=== PATIENT | female | born 1940 | race Caucasian/White ===

== ENCOUNTER 2019-04-28 18:52 | Observation (INO) | payer MEDICARE ==
[2019-04-28] MEDS ORDERED: Zofran 4 MG/2 ML VIAL IV ONE (19:35)
[2019-04-28] MEDS ORDERED: Zofran 4 MG/2 ML VIAL ONE (19:40)
[2019-04-28] MEDS ORDERED: Sodium Chloride 0.9% 1000 ML 0 ML ONE (19:40)
[2019-04-28] MEDS: Sodium Chloride 0.9% 1000 ML 1,000 ML IV SCH ×2 (19:53→21:05)
--- NOTE | 2019-04-28 20:30 | ERPHSYRPT ---
- History of Present Illness Source: patient Exam Limitations: no limitations Patient Subjective Stated Complaint: STATES SINCE MONDAY HAS HAD N/V/D. TODAY IS HAVING SEVERE WEAKNESS AND PASSED OUT WHILE ANSWERING THE DOOR. Triage Nursing Assessment: TO ROOM PER EMS COT. SKIN W/D, COLOR PALE. RESP NONLABORED. PATIENT'S MOUTH DRY. ABD SOFT, NONTENDER. IV IN PLACE FROM EMS, 20GA LAF. SALINE INFUSING WIDE OPEN. Physician History: Diarrhea for past 4 days. No recent international travel history,nno suspicious foods consumed, no recent antibiotics, no recent hospitalizations. Timing/Duration: day(s) (4) Severity: moderate Modifying Factors: Improves With: nothing Associated Symptoms: nausea, vomiting, malaise, weakness, No abdominal pain, No shortness of breath, No heartburn, No diaphoresis, No cough, No chills, No chest pain, No fever, No headaches, No loss of appetite, No rash, No syncope, No seizure Allergies/Adverse Reactions: No Known Drug Allergies Allergy (Unverified 04/28/19 19:01) Home Medications: Lisinopril/Hydrochlorothiazide [Lisinopril-Hctz 20-12.5 mg Tab] 20 mg PO DAILY 04/28/19 [History] Simvastatin 10 mg PO DAILY 04/28/19 [History] Hx Tetanus, Diphtheria Vaccination/Date Given: No Hx Influenza Vaccination/Date Given: No Hx Pneumococcal Vaccination/Date Given: No Immunizations Up to Date: No - Review of Systems Constitutional: Fatigue, Malaise, No Fever, No Chills Eyes: No Discharge, No Eye Pain Ears, Nose, & Throat: No Symptoms, No Ear Pain, No Epistaxis, No Mouth Swelling , No Throat Swelling, No Painful Swallowing Respiratory: No Cough, No Dyspnea Cardiac: Syncope (brief while standing), No Chest Pain, No Edema Abdominal/Gastrointestinal: Nausea, Vomiting, Diarrhea (5 times a day), No Abdominal Pain, No Hematemesis, No Hematochezia, No Melena Genitourinary Symptoms: No Dysuria, No Hematuria, No Flank Pain Musculoskeletal: No Back Pain, No Neck Pain Skin: No Rash Neurological: Dizziness, No Focal Weakness, No Headache, No Parasthesia, No Sensory Changes, No Tremors, No Vertigo Psychological: No Symptoms Endocrine: No Polyuria, No Polydipsia, No Excessive Sweating Hematologic/Lymphatic: No Easy Bleeding, No Easy Bruising All Other Systems: Reviewed and Negative - Past Medical History Neurological History: No Pertinent History ENT History: Cataracts Cardiac History: Hypertension Respiratory History: No Pertinent History Endocrine Medical History: No Pertinent History Musculoskeletal History: Arthritis GI Medical History: Diverticulitis History: No Pertinent History Psycho-Social History: No Pertinent History Female Reproductive Disorders: Other - Past Surgical History Past Surgical History: Yes Female Surgical History: Hysterectomy - Social History Smoking Status: Never smoker Exposure to second hand smoke: Yes Drug Use: none Patient Lives Alone: Yes - Female History Hx Now: No - Nursing Vital Signs Nursing Vital Signs: Initial Vital Signs Temperature 100.1 F 04/28/19 18:53 Pulse Rate 87 04/28/19 18:53 Respiratory Rate 16 04/28/19 18:53 Blood Pressure 135/65 04/28/19 18:53 O2 Sat by Pulse Oximetry 99 04/28/19 18:53 Pain Scale Pain Intensity 0 - Physical Exam General Appearance: no apparent distress, alert Eye Exam: PERRL/EOMI, eyes nml inspection Ears, Nose, Throat Exam: normal ENT inspection, TMs normal, moist mucous membranes, dry mucous membranes, No pharyngeal erythema, No tonsillar exudate Neck Exam: normal inspection, non-tender, supple, full range of motion, No meningismus, No mass, No Brudzinski, No lymphadenopathy, No midline tenderness Respiratory Exam: normal breath sounds, lungs clear, airway intact, No respiratory distress, No diminished breath sounds, No accessory muscle use, No crackles/rales, No rhonchi, No wheezing, No stridor Cardiovascular Exam: normal heart sounds, normal peripheral pulses, No murmur, No friction rub Gastrointestinal/Abdomen Exam: soft, normal bowel sounds, No tenderness, No mass Back Exam: normal inspection, normal range of motion, No CVA tenderness, No vertebral tenderness Extremity Exam: normal inspection, normal range of motion, pelvis stable Neurologic Exam: alert, oriented x 3, cooperative, normal mood/affect, nml cerebellar function, nml station & gait, sensation nml, No motor deficits Skin Exam: normal color, warm, dry, No rash Lymphatic Exam: No adenopathy SpO2 Interpretation: normal SpO2: 98 O2 Delivery: Room Air - Course Nursing assessment & vital signs reviewed: Yes EKG Interpreted by Me: RATE (84), A-fib, NORMAL AXIS, NORMAL INTERVALS, NORMAL QRS, NORMAL ST-T, Other (negative previous EKG for comparison; Repeat EKG shows rate at 78 with most likely sinus arrhythmia; no acute ST or T wave changes) Ordered Tests: Active Orders 24 hr Category Date Time Status Training Development Manager STAT Care 04/28/19 19:36 Active EKG-ER Only STAT Care 04/28/19 19:35 Active EKG-ER Only STAT Care 04/28/19 21:27 Active IV Insertion STAT Care 04/28/19 19:35 Active CBC W DIFF Stat Lab 04/28/19 20:44 Completed CMP Stat Lab 04/28/19 20:44 Completed Lactic Acid Stat Lab 04/28/19 19:35 Completed MAGNESIUM Stat Lab 04/28/19 20:44 Completed PROTIME WITH INR Stat Lab 04/28/19 20:44 Completed PTT Stat Lab 04/28/19 20:44 Completed Urinalysis with Microscopy Stat Lab 04/28/19 Uncollected VENOUS BLOOD GAS Stat Lab 04/28/19 19:35 Completed Medication Summary Generic Name Dose Route Start Last Admin Trade Name Freq PRN Reason Stop Dose Admin Sodium Chloride 1,000 mls @ 999 mls/hr 04/28/19 19:45 04/28/19 21:05 Sodium Chloride 0.9% 1000 Ml IV 04/28/19 21:45 999 mls/hr .Q1H1M SUDHIR Administration Discontinued Medications Generic Name Dose Route Start Last Admin Trade Name Freq PRN Reason Stop Dose Admin Ondansetron HCl 4 mg 04/28/19 19:35 04/28/19 19:51 Zofran 4 Mg/2 Ml Vial IV 04/28/19 19:36 4 mg STAT ONE Administration Ondansetron HCl Confirm 04/28/19 19:40 Zofran 4 Mg/2 Ml Vial Administered 04/28/19 19:41 Dose 4 mg .ROUTE .STK-MED ONE Lab/Rad Data: Laboratory Result Diagrams 04/28/19 20:44 04/28/19 20:44 Laboratory Results 04/28/19 04/28/19 04/28/19 Range/Units 20:44 20:44 20:44 WBC 8.9 (4.0-10.5) K/mm3 RBC 4.16 (4.1-5.4) M/mm3 Hgb 12.3 (12.0-16.0) gm/dl Hct 37.7 (35-47) % MCV 90.6 (78-100) fl MCH 29.6 (26-32) pg MCHC 32.6 (32-36) g/dl RDW 13.7 (11.5-14.0) % Plt Count 218 (150-450) K/mm3 MPV 11.2 H (6-9.5) fl Gran % 86.6 H (36.0-66.0) % Eos # (Auto) 0.01 (0-0.5) Absolute Lymphs (auto) 0.66 L (1.0-4.6) Absolute Monos (auto) 0.50 (0.0-1.3) Lymphocytes % 7.4 L (24.0-44.0) % Monocytes % 5.6 (0.0-12.0) % Eosinophils % 0.1 (0.00-5.0) % Basophils % 0.3 (0.0-0.4) % Absolute Granulocytes 7.66 H (1.4-6.9) Basophils # 0.03 (0-0.4) PT 14.3 H (9.95-12.35) SECONDS INR 1.26 (0.8-3.0) APTT 25.4 (25.3-37.0) SECONDS pO2/FiO2 Ratio % VBG pH (7.32-7.42) VBG pCO2 at Pat Temp (42-55) mm/Hg VBG pO2 at Pat Temp (25-40) mm/Hg VBG HCO3 (22-28) meq/L VBG O2 Sat (Raimundo) (95-100) VBG Base Excess (-2.0-2.0) VBG Hemoglobin VBG Carboxyhemoglobin (0.0-6.9) % T HGB POC Potassium (3.5-5.1) Sodium 135 L (137-145) mmol/L Potassium 2.9 L* (3.5-5.1) mmol/L Chloride 102 (98-107) mmol/L Carbon Dioxide 21 L (22-30) mmol/L Anion Gap 14.8 (5-15) MEQ/L BUN 31 H (7-17) mg/dL Creatinine 1.48 H (0.52-1.04) mg/dL Estimated GFR 36.1 ML/MIN Glucose 111 H (74-106) mg/dL Lactic Acid (0.4-2.0) Calcium 7.7 L (8.4-10.2) mg/dL Magnesium 1.6 (1.6-2.3) mg/dL Total Bilirubin 0.50 (0.2-1.3) mg/dL AST 28 (14-36) U/L ALT 12 (0-35) U/L Alkaline Phosphatase 76 (38-126) U/L Serum Total Protein 6.3 (6.3-8.2) g/dL Albumin 3.0 L (3.5-5.0) g/dL 04/28/19 04/28/19 Range/Units 19:35 19:35 WBC (4.0-10.5) K/mm3 RBC (4.1-5.4) M/mm3 Hgb (12.0-16.0) gm/dl Hct (35-47) % MCV (78-100) fl MCH (26-32) pg MCHC (32-36) g/dl RDW (11.5-14.0) % Plt Count (150-450) K/mm3 MPV (6-9.5) fl Gran % (36.0-66.0) % Eos # (Auto) (0-0.5) Absolute Lymphs (auto) (1.0-4.6) Absolute Monos (auto) (0.0-1.3) Lymphocytes % (24.0-44.0) % Monocytes % (0.0-12.0) % Eosinophils % (0.00-5.0) % Basophils % (0.0-0.4) % Absolute Granulocytes (1.4-6.9) Basophils # (0-0.4) PT (9.95-12.35) SECONDS INR (0.8-3.0) APTT (25.3-37.0) SECONDS pO2/FiO2 Ratio 21.0 % VBG pH 7.58 H* (7.32-7.42) VBG pCO2 at Pat Temp 23 L* (42-55) mm/Hg VBG pO2 at Pat Temp 88 H (25-40) mm/Hg VBG HCO3 21.6 L (22-28) meq/L VBG O2 Sat (Raimundo) 99.2 (95-100) VBG Base Excess 1.2 (-2.0-2.0) VBG Hemoglobin 12.5 VBG Carboxyhemoglobin 3.4 (0.0-6.9) % T HGB POC Potassium 2.8 L* (3.5-5.1) Sodium (137-145) mmol/L Potassium (3.5-5.1) mmol/L Chloride (98-107) mmol/L Carbon Dioxide (22-30) mmol/L Anion Gap (5-15) MEQ/L BUN (7-17) mg/dL Creatinine (0.52-1.04) mg/dL Estimated GFR ML/MIN Glucose (74-106) mg/dL Lactic Acid 1.1 (0.4-2.0) Calcium (8.4-10.2) mg/dL Magnesium (1.6-2.3) mg/dL Total Bilirubin (0.2-1.3) mg/dL AST (14-36) U/L ALT (0-35) U/L Alkaline Phosphatase (38-126) U/L Serum Total Protein (6.3-8.2) g/dL Albumin (3.5-5.0) g/dL - Progress Progress: unchanged Progress Note: 04/28/19 21:32 Discussed the patient's EKG, lab results and presentation with Dr Chu, Hospitalist. Dr Chu accepted the patient for admission, requested serial troponins, oral potassium replacement and starting potassium with normal saline at 120ml/hour and recheck labs in the am Discussed with .: eZyad Will see patient in: hospital (observation) Counseled pt/family regarding: lab results, diagnosis, need for follow-up - Departure Departure Disposition: Observation ([facility] Telemetry) Clinical Impression: Dehydration, Hypokalemia, BRITTANY (acute kidney injury), Metabolic alkalosis Hypertension Qualifiers: Hypertension type: essential hypertension Qualified Code(s): I10 - Essential ( primary) hypertension Condition: Fair Critical Care Time: No Referrals: HEMA CEJA MD [Primary Care Provider] -
[2019-04-28 20:46] LABS: BASOPHIL % 0.3 % (0.0-0.4); Basophil (Absolute #) 0.03 (0-0.4); Eosinophil % 0.1 % (0.00-5.0); Eosinophil (Absolute #) 0.01 (0-0.5); Granulocyte Absolute (ANC) 7.66 (1.4-6.9); Granulocytes % 86.6 % (36.0-66.0); Hematocrit 37.7 % (35-47); Hemoglobin 12.3 gm/dl (12.0-16.0); Lymphocyte (Absolute #) 0.66 (1.0-4.6); Lymphocytes % 7.4 % (24.0-44.0); Mean Cell Volume 90.6 fl (78-100); Mean Corpuscular Hemoglobin 29.6 pg (26-32); Mean Corpuscular Hgb Concent. 32.6 g/dl (32-36); Mean Platelet Volume 11.2 fl (6-9.5); Monocytes % 5.6 % (0.0-12.0); Platelet Count 218 K/mm3 (150-450); Red Blood Count 4.16 M/mm3 (4.1-5.4); Red Cell Distribution Width 13.7 % (11.5-14.0); White Blood Count 8.9 K/mm3 (4.0-10.5)
[2019-04-28 21:01] LABS: VBG BASE EXCESS 1.2 (-2.0-2.0); VBG CARBOXYHEMOGLOBIN 3.4 % T HGB (0.0-6.9); VBG HCO3- 21.6 meq/L (22-28); VBG HEMOGLOBIN 12.5; VBG O2 SATURATION 99.2 (95-100); VBG pH 7.58 (7.32-7.42)
[2019-04-28 21:02] LABS: VBG POTASSIUM 2.8 (3.5-5.1)
[2019-04-28 21:03] LABS: INR 1.26 (0.8-3.0); PROTIME 14.3 SECONDS (9.95-12.35)
[2019-04-28] MEDS ORDERED: Sodium Chloride 0.9% 1000 ML 1,000 ML ONE ×2 (21:04→22:09)
[2019-04-28 21:06] LABS: PTT 25.4 SECONDS (25.3-37.0)
[2019-04-28 21:08] LABS: ANION GAP 14.8 MEQ/L (5-15); BILIRUBIN,TOTAL 0.5 mg/dL (0.2-1.3); Calcium 7.7 mg/dL (8.4-10.2); Creatinine 1 1.48 mg/dL (0.52-1.04); MAGNESIUM 1.6 mg/dL (1.6-2.3); Total Protein 6.3 g/dL (6.3-8.2)
[2019-04-28 21:12] LABS: Potassium 2.9 mmol/L (3.5-5.1)
[2019-04-28] MEDS ORDERED: TYLENOL EXTRA STRENGTH 500 MG PO STA (21:39)
[2019-04-28] MEDS ORDERED: Klor Con 10 MEQ PO ONE ×2 (21:39→21:41)
[2019-04-28] MEDS ORDERED: TYLENOL EXTRA STRENGTH 500 MG ONE (21:41)
[2019-04-28] MEDS ORDERED: TYLENOL 325 MG PO PRN (22:00)
[2019-04-28 22:04] LABS: Appearance CLEAR (CLEAR); Bilirubin NEGATIVE (NEGATIVE); Blood LARGE Ery/ul (0-5); Glucose NEGATIVE (NEGATIVE); Ketones TRACE (NEGATIVE); Leukocyte Esterase NEGATIVE (NEGATIVE); Mucus SLIGHT /HPF (NEGATIVE); Nitrite NEGATIVE (NEGATIVE); Protein,Urine Dip 30 (Negative); RBC 26-50 /HPF (0-2); Specific Gravity 1.014 (1.005-1.025); Urobilinogen NEGATIVE mg/dL (0-1)
[2019-04-28] MEDS: Pepcid 20 MG PO SCH (22:25)
[2019-04-28] MEDS: Sodium Chloride 0.9% W/ 20 mEq KCl/LITER 1,000 ML IV SCH (22:25)
[2019-04-29 04:18] LABS: BASOPHIL % 0.5 % (0.0-0.4); Basophil (Absolute #) 0.03 (0-0.4); Eosinophil (Absolute #) 0 (0-0.5); Granulocyte Absolute (ANC) 5.07 (1.4-6.9); Granulocytes % 78.7 % (36.0-66.0); Hematocrit 34.7 % (35-47); Hemoglobin 11.1 gm/dl (12.0-16.0); Lymphocyte (Absolute #) 0.76 (1.0-4.6); Lymphocytes % 11.8 % (24.0-44.0); Mean Cell Volume 92.3 fl (78-100); Mean Corpuscular Hemoglobin 29.5 pg (26-32); Mean Platelet Volume 11.1 fl (6-9.5); Monocyte (Absolute #) 0.58 (0.0-1.3); Platelet Count 188 K/mm3 (150-450); Red Blood Count 3.76 M/mm3 (4.1-5.4); Red Cell Distribution Width 13.8 % (11.5-14.0); White Blood Count 6.4 K/mm3 (4.0-10.5)
[2019-04-29 04:23] LABS: ANION GAP 11.9 MEQ/L (5-15); Calcium 7.6 mg/dL (8.4-10.2); Creatinine 1 1.43 mg/dL (0.52-1.04); Potassium 3.8 mmol/L (3.5-5.1)
[2019-04-29] MEDS: Sodium Chloride 0.9% W/ 20 mEq KCl/LITER 1,000 ML IV SCH ×3 (06:42→23:18)
[2019-04-29] MEDS: Pepcid 20 MG PO SCH ×2 (08:27→21:15)
--- NOTE | 2019-04-29 08:31 | PCM.HP ---
History of Present Illness - Chief Complaint Chief Complaint: Dehydration, diarrhea, hypokalemia, metabolic alkalosis History of Present Illness: is a 78 year old female with a 3-4 day history of diarrhea, she reports she has had subjective fever and vomited x 1. Last night she became very weak and passed out while trying to answer the door. She has chronic right knee issues but today notes swelling and difficulty standing/walking due to right knee pain. She only has pain in the medial/anterior right knee when she attempts to ambulate on it. Has only had 1 loose stool since 10pm last night so diarrhea has slowed significantly. - Review of Systems Constitutional: Fever, Chills Respiratory: No Cough, No Short Of Breath Cardiac: Syncope, No Chest Pain, No Edema, No Palpitations, No Orthopnea, No PND Abdominal/Gastrointestinal: Diarrhea, No Abdominal Pain, No Nausea, No Vomiting Genitourinary Symptoms: No Dysuria Neurological: No Dizziness, No Focal Weakness, No Paralysis, No Parasthesia, No Seizure, No Sensory Changes, No Speech Changes Psychological: No Symptoms Medications & Allergies Home Medications: Home Medication List Lisinopril/Hydrochlorothiazide [Lisinopril-Hctz 20-12.5 mg Tab] 20 mg PO DAILY 04/28/19 [History Confirmed 04/28/19] Simvastatin 10 mg PO DAILY 04/28/19 [History Confirmed 04/28/19] Allergies/Adverse Reactions: Allergies Allergy/AdvReac Type Severity Reaction Status Date / Time No Known Drug Allergies Allergy Unverified 04/28/19 19:01 - Past Medical History Neurological History: No Pertinent History ENT History: Cataracts Cardiac History: Hypertension Respiratory History: No Pertinent History Endocrine Medical History: No Pertinent History Musculoskelatal History: Arthritis GI Medical History: Diverticulitis History: No Pertinent History Pyscho-Social History: No Pertinent History Reproductive Disorders: Other - Female History Are you now?: No - Past Surgical History Past Surgical History: Yes Female Surgical History: Hysterectomy Other Surgical History: prolapsed vagina - Social History Smoking Status: Never smoker Exposure to second hand smoke: No Alcohol: None Drug Use: none - Physical Exam Vital Signs: Vital Signs - 24 hr Temp Pulse Resp BP Pulse Ox 04/29/19 07:10 98.5 F 66 17 104/56 95 04/29/19 04:17 98.2 F 65 16 92/52 95 09/16/19 00:00 19 04/28/19 22:37 100.3 F 78 19 131/62 97 04/28/19 22:00 97 04/28/19 21:38 98 04/28/19 21:38 102.0 F 04/28/19 21:06 88 18 141/85 99 04/28/19 19:53 88 20 140/68 98 04/28/19 18:53 100.1 F 87 16 135/65 99 General Appearance: no apparent distress Neurologic Exam: alert, oriented x 3, cooperative Eye Exam: PERRL/EOMI, eyes nml inspection Ears, Nose, Throat Exam: normal ENT inspection Neck Exam: normal inspection, non-tender, supple Respiratory Exam: normal breath sounds, lungs clear, No respiratory distress Cardiovascular Exam: regular rate/rhythm, normal heart sounds, normal peripheral pulses Gastrointestinal/Abdomen Exam: soft, normal bowel sounds, No tenderness, No distention, No mass, No guarding, No rebound Extremity Exam: normal inspection, normal range of motion, pelvis stable, other (right knee crepitus with range of motion, mild effusion. no obvious ligament instability, no bony tenderness) Results - Labs Lab/Micro Results: Lab Results-Last 24 Hours 04/28/19 04/28/19 04/28/19 Range/Units 19:35 19:35 20:44 WBC 8.9 (4.0-10.5) K/mm3 RBC 4.16 (4.1-5.4) M/mm3 Hgb 12.3 (12.0-16.0) gm/dl Hct 37.7 (35-47) % MCV 90.6 (78-100) fl MCH 29.6 (26-32) pg MCHC 32.6 (32-36) g/dl RDW 13.7 (11.5-14.0) % Plt Count 218 (150-450) K/mm3 MPV 11.2 H (6-9.5) fl Gran % 86.6 H (36.0-66.0) % Eos # (Auto) 0.01 (0-0.5) Absolute Lymphs (auto) 0.66 L (1.0-4.6) Absolute Monos (auto) 0.50 (0.0-1.3) Lymphocytes % 7.4 L (24.0-44.0) % Monocytes % 5.6 (0.0-12.0) % Eosinophils % 0.1 (0.00-5.0) % Basophils % 0.3 (0.0-0.4) % Absolute Granulocytes 7.66 H (1.4-6.9) Basophils # 0.03 (0-0.4) PT (9.95-12.35) SECONDS INR (0.8-3.0) APTT (25.3-37.0) SECONDS pO2/FiO2 Ratio 21.0 % VBG pH 7.58 H* (7.32-7.42) VBG pCO2 at Pat Temp 23 L* (42-55) mm/Hg VBG pO2 at Pat Temp 88 H (25-40) mm/Hg VBG HCO3 21.6 L (22-28) meq/L VBG O2 Sat (Raimundo) 99.2 (95-100) VBG Base Excess 1.2 (-2.0-2.0) VBG Hemoglobin 12.5 VBG Carboxyhemoglobin 3.4 (0.0-6.9) % T HGB POC Potassium 2.8 L* (3.5-5.1) Sodium (137-145) mmol/L Potassium (3.5-5.1) mmol/L Chloride (98-107) mmol/L Carbon Dioxide (22-30) mmol/L Anion Gap (5-15) MEQ/L BUN (7-17) mg/dL Creatinine (0.52-1.04) mg/dL Estimated GFR ML/MIN Glucose (74-106) mg/dL Lactic Acid 1.1 (0.4-2.0) Calcium (8.4-10.2) mg/dL Magnesium (1.6-2.3) mg/dL Total Bilirubin (0.2-1.3) mg/dL AST (14-36) U/L ALT (0-35) U/L Alkaline Phosphatase (38-126) U/L Troponin I (0.000-0.034) ng/mL Serum Total Protein (6.3-8.2) g/dL Albumin (3.5-5.0) g/dL Urine Color (YELLOW) Urine Appearance (CLEAR) Urine pH (5-6) Ur Specific [place] (1.005-1.025) Urine Protein (Negative) Urine Ketones (NEGATIVE) Urine Blood (0-5) Cameron/ul Urine Nitrite (NEGATIVE) Urine Bilirubin (NEGATIVE) Urine Urobilinogen (0-1) mg/dL Ur Leukocyte Esterase (NEGATIVE) Urine WBC (Auto) (0-5) /HPF Urine RBC (Auto) (0-2) /HPF U Epithel Cells (Auto) (FEW) /HPF Urine Bacteria (Auto) (NEGATIVE) /HPF Urine Mucus (Auto) (NEGATIVE) /HPF Urine Glucose (NEGATIVE) mg/dL 04/28/19 04/28/19 04/28/19 Range/Units 20:44 20:44 21:59 WBC (4.0-10.5) K/mm3 RBC (4.1-5.4) M/mm3 Hgb (12.0-16.0) gm/dl Hct (35-47) % MCV (78-100) fl MCH (26-32) pg MCHC (32-36) g/dl RDW (11.5-14.0) % Plt Count (150-450) K/mm3 MPV (6-9.5) fl Gran % (36.0-66.0) % Eos # (Auto) (0-0.5) Absolute Lymphs (auto) (1.0-4.6) Absolute Monos (auto) (0.0-1.3) Lymphocytes % (24.0-44.0) % Monocytes % (0.0-12.0) % Eosinophils % (0.00-5.0) % Basophils % (0.0-0.4) % Absolute Granulocytes (1.4-6.9) Basophils # (0-0.4) PT 14.3 H (9.95-12.35) SECONDS INR 1.26 (0.8-3.0) APTT 25.4 (25.3-37.0) SECONDS pO2/FiO2 Ratio % VBG pH (7.32-7.42) VBG pCO2 at Pat Temp (42-55) mm/Hg VBG pO2 at Pat Temp (25-40) mm/Hg VBG HCO3 (22-28) meq/L VBG O2 Sat (Raimundo) (95-100) VBG Base Excess (-2.0-2.0) VBG Hemoglobin VBG Carboxyhemoglobin (0.0-6.9) % T HGB POC Potassium (3.5-5.1) Sodium 135 L (137-145) mmol/L Potassium 2.9 L* (3.5-5.1) mmol/L Chloride 102 (98-107) mmol/L Carbon Dioxide 21 L (22-30) mmol/L Anion Gap 14.8 (5-15) MEQ/L BUN 31 H (7-17) mg/dL Creatinine 1.48 H (0.52-1.04) mg/dL Estimated GFR 36.1 ML/MIN Glucose 111 H (74-106) mg/dL Lactic Acid (0.4-2.0) Calcium 7.7 L (8.4-10.2) mg/dL Magnesium 1.6 (1.6-2.3) mg/dL Total Bilirubin 0.50 (0.2-1.3) mg/dL AST 28 (14-36) U/L ALT 12 (0-35) U/L Alkaline Phosphatase 76 (38-126) U/L Troponin I 0.025 (0.000-0.034) ng/mL Serum Total Protein 6.3 (6.3-8.2) g/dL Albumin 3.0 L (3.5-5.0) g/dL Urine Color (YELLOW) Urine Appearance (CLEAR) Urine pH (5-6) Ur Specific [place] (1.005-1.025) Urine Protein (Negative) Urine Ketones (NEGATIVE) Urine Blood (0-5) Cameron/ul Urine Nitrite (NEGATIVE) Urine Bilirubin (NEGATIVE) Urine Urobilinogen (0-1) mg/dL Ur Leukocyte Esterase (NEGATIVE) Urine WBC (Auto) (0-5) /HPF Urine RBC (Auto) (0-2) /HPF U Epithel Cells (Auto) (FEW) /HPF Urine Bacteria (Auto) (NEGATIVE) /HPF Urine Mucus (Auto) (NEGATIVE) /HPF Urine Glucose (NEGATIVE) mg/dL 04/28/19 04/29/19 04/29/19 Range/Units 21:59 00:58 04:09 WBC (4.0-10.5) K/mm3 RBC (4.1-5.4) M/mm3 Hgb (12.0-16.0) gm/dl Hct (35-47) % MCV (78-100) fl MCH (26-32) pg MCHC (32-36) g/dl RDW (11.5-14.0) % Plt Count (150-450) K/mm3 MPV (6-9.5) fl Gran % (36.0-66.0) % Eos # (Auto) (0-0.5) Absolute Lymphs (auto) (1.0-4.6) Absolute Monos (auto) (0.0-1.3) Lymphocytes % (24.0-44.0) % Monocytes % (0.0-12.0) % Eosinophils % (0.00-5.0) % Basophils % (0.0-0.4) % Absolute Granulocytes (1.4-6.9) Basophils # (0-0.4) PT (9.95-12.35) SECONDS INR (0.8-3.0) APTT (25.3-37.0) SECONDS pO2/FiO2 Ratio % VBG pH (7.32-7.42) VBG pCO2 at Pat Temp (42-55) mm/Hg VBG pO2 at Pat Temp (25-40) mm/Hg VBG HCO3 (22-28) meq/L VBG O2 Sat (Raimundo) (95-100) VBG Base Excess (-2.0-2.0) VBG Hemoglobin VBG Carboxyhemoglobin (0.0-6.9) % T HGB POC Potassium (3.5-5.1) Sodium (137-145) mmol/L Potassium (3.5-5.1) mmol/L Chloride (98-107) mmol/L Carbon Dioxide (22-30) mmol/L Anion Gap (5-15) MEQ/L BUN (7-17) mg/dL Creatinine (0.52-1.04) mg/dL Estimated GFR ML/MIN Glucose (74-106) mg/dL Lactic Acid (0.4-2.0) Calcium (8.4-10.2) mg/dL Magnesium (1.6-2.3) mg/dL Total Bilirubin (0.2-1.3) mg/dL AST (14-36) U/L ALT (0-35) U/L Alkaline Phosphatase (38-126) U/L Troponin I 0.034 0.032 (0.000-0.034) ng/mL Serum Total Protein (6.3-8.2) g/dL Albumin (3.5-5.0) g/dL Urine Color YELLOW (YELLOW) Urine Appearance CLEAR (CLEAR) Urine pH 6.0 (5-6) Ur Specific [place] 1.014 (1.005-1.025) Urine Protein 30 (Negative) Urine Ketones TRACE (NEGATIVE) Urine Blood LARGE (0-5) Cameron/ul Urine Nitrite NEGATIVE (NEGATIVE) Urine Bilirubin NEGATIVE (NEGATIVE) Urine Urobilinogen NEGATIVE (0-1) mg/dL Ur Leukocyte Esterase NEGATIVE (NEGATIVE) Urine WBC (Auto) 3-5 (0-5) /HPF Urine RBC (Auto) 26-50 (0-2) /HPF U Epithel Cells (Auto) NONE (FEW) /HPF Urine Bacteria (Auto) NONE (NEGATIVE) /HPF Urine Mucus (Auto) SLIGHT (NEGATIVE) /HPF Urine Glucose NEGATIVE (NEGATIVE) mg/dL 04/29/19 04/29/19 Range/Units 04:09 04:09 WBC 6.4 (4.0-10.5) K/mm3 RBC 3.76 L (4.1-5.4) M/mm3 Hgb 11.1 L (12.0-16.0) gm/dl Hct 34.7 L (35-47) % MCV 92.3 (78-100) fl MCH 29.5 (26-32) pg MCHC 32.0 (32-36) g/dl RDW 13.8 (11.5-14.0) % Plt Count 188 (150-450) K/mm3 MPV 11.1 H (6-9.5) fl Gran % 78.7 H (36.0-66.0) % Eos # (Auto) 0 (0-0.5) Absolute Lymphs (auto) 0.76 L (1.0-4.6) Absolute Monos (auto) 0.58 (0.0-1.3) Lymphocytes % 11.8 L (24.0-44.0) % Monocytes % 9.0 (0.0-12.0) % Eosinophils % 0.0 (0.00-5.0) % Basophils % 0.5 (0.0-0.4) % Absolute Granulocytes 5.07 (1.4-6.9) Basophils # 0.03 (0-0.4) PT (9.95-12.35) SECONDS INR (0.8-3.0) APTT (25.3-37.0) SECONDS pO2/FiO2 Ratio % VBG pH (7.32-7.42) VBG pCO2 at Pat Temp (42-55) mm/Hg VBG pO2 at Pat Temp (25-40) mm/Hg VBG HCO3 (22-28) meq/L VBG O2 Sat (Raimundo) (95-100) VBG Base Excess (-2.0-2.0) VBG Hemoglobin VBG Carboxyhemoglobin (0.0-6.9) % T HGB POC Potassium (3.5-5.1) Sodium 138 (137-145) mmol/L Potassium 3.8 D (3.5-5.1) mmol/L Chloride 107 (98-107) mmol/L Carbon Dioxide 23 (22-30) mmol/L Anion Gap 11.9 (5-15) MEQ/L BUN 27 H (7-17) mg/dL Creatinine 1.43 H (0.52-1.04) mg/dL Estimated GFR 37.5 ML/MIN Glucose 99 (74-106) mg/dL Lactic Acid (0.4-2.0) Calcium 7.6 L (8.4-10.2) mg/dL Magnesium (1.6-2.3) mg/dL Total Bilirubin (0.2-1.3) mg/dL AST (14-36) U/L ALT (0-35) U/L Alkaline Phosphatase (38-126) U/L Troponin I (0.000-0.034) ng/mL Serum Total Protein (6.3-8.2) g/dL Albumin (3.5-5.0) g/dL Urine Color (YELLOW) Urine Appearance (CLEAR) Urine pH (5-6) Ur Specific [place] (1.005-1.025) Urine Protein (Negative) Urine Ketones (NEGATIVE) Urine Blood (0-5) Cameron/ul Urine Nitrite (NEGATIVE) Urine Bilirubin (NEGATIVE) Urine Urobilinogen (0-1) mg/dL Ur Leukocyte Esterase (NEGATIVE) Urine WBC (Auto) (0-5) /HPF Urine RBC (Auto) (0-2) /HPF U Epithel Cells (Auto) (FEW) /HPF Urine Bacteria (Auto) (NEGATIVE) /HPF Urine Mucus (Auto) (NEGATIVE) /HPF Urine Glucose (NEGATIVE) mg/dL - Radiology Impressions Radiology Exams & Impressions: Radiology Procedures Category Date Time Status KNEE (1 OR 2 VIEW) Routine Exams 04/29/19 Ordered Assessment/Plan (1) Syncope Current Visit: Yes Status: Acute Assessment & Plan: related to dehydration, [place] ruled out. Code(s): R55 - SYNCOPE AND COLLAPSE (2) Diarrhea Current Visit: Yes Status: Acute Assessment & Plan: GI panel pending, improved with hydration and observation Code(s): R19.7 - DIARRHEA, UNSPECIFIED (3) Right knee sprain Current Visit: Yes Status: Acute Assessment & Plan: xray to r/o fracture, clinically consistent with sprain Code(s): S83.91XA - SPRAIN OF UNSPECIFIED SITE OF RIGHT KNEE, INITIAL ENCOUNTER (4) BRITTANY (acute kidney injury) Current Visit: Yes Status: Acute Assessment & Plan: improved with hydration Code(s): N17.9 - ACUTE KIDNEY FAILURE, UNSPECIFIED (5) Dehydration Current Visit: Yes Status: Acute Assessment & Plan: volume being replaced. bp stable but on low side, hold zestoretic at this time Code(s): E86.0 - DEHYDRATION
[2019-04-29] MEDS: Zocor 10MG PO SCH (09:22)
--- NOTE | 2019-04-29 09:47 | XRAY ---
Indication: Pain. Comparison: None Portable AP/crosstable lateral right knee demonstrates osteopenia and mild/moderate tricompartmental degenerative changes greatest lateral compartment. Also small nonspecific effusion, posterior heterotopic ossifications, and small medial calcified granuloma. Distal femur minimal cortical depression anteriorly favored to be remote probably from old injury. Impression: Nonacute right knee with chronic features.
[2019-04-29] MEDS ORDERED: ENOXAPARIN SODIUM SQ SCH ×2 (10:00)
[2019-04-29 10:29] LABS: Adenovirus F 40/41 NEGATIVE (NEGATIVE); Astrovirus NEGATIVE (NEGATIVE); C. Difficile Organism NEGATIVE (NEGATIVE); Campylobacter NEGATIVE (NEGATIVE); Cryptosporidium NEGATIVE (NEGATIVE); Cyclospora cayentanensis NEGATIVE (NEGATIVE); Entamoeaba histolytica NEGATIVE (NEGATIVE); Enteroaggregative E.coli NEGATIVE (NEGATIVE); Enterotoxigenic E.coli NEGATIVE (NEGATIVE); Giardia lamblia NEGATIVE (NEGATIVE); Norovirus GI/GII NEGATIVE (NEGATIVE); Plesiomonas shigelloides NEGATIVE (NEGATIVE); Rotavirus A NEGATIVE (NEGATIVE); Salmonella NEGATIVE (NEGATIVE); Sapovirus NEGATIVE (NEGATIVE); Shiga-like toxin prod.E.coli NEGATIVE (NEGATIVE); Vibrio NEGATIVE (NEGATIVE); Vibrio cholerae NEGATIVE (NEGATIVE); Yersinia enterocolitica NEGATIVE (NEGATIVE)
[2019-04-29 10:31] LABS: Enteropathogenic E.coli POSITIVE (NEGATIVE)
[2019-04-29] MEDS: Cipro 500 MG PO SCH ×2 (12:44→21:15)
[2019-04-30 04:37] LABS: BASOPHIL % 0.7 % (0.0-0.4); Basophil (Absolute #) 0.04 (0-0.4); Eosinophil % 0.2 % (0.00-5.0); Eosinophil (Absolute #) 0.01 (0-0.5); Granulocyte Absolute (ANC) 3.68 (1.4-6.9); Granulocytes % 66.7 % (36.0-66.0); Hematocrit 32.9 % (35-47); Hemoglobin 10.2 gm/dl (12.0-16.0); Lymphocyte (Absolute #) 1.11 (1.0-4.6); Lymphocytes % 20.1 % (24.0-44.0); Mean Cell Volume 95.1 fl (78-100); Mean Platelet Volume 11.1 fl (6-9.5); Monocyte (Absolute #) 0.68 (0.0-1.3); Monocytes % 12.3 % (0.0-12.0); Platelet Count 182 K/mm3 (150-450); Red Blood Count 3.46 M/mm3 (4.1-5.4); Red Cell Distribution Width 14.3 % (11.5-14.0); White Blood Count 5.5 K/mm3 (4.0-10.5)
[2019-04-30 04:40] LABS: Mean Corpuscular Hemoglobin 29.4 pg (26-32)
[2019-04-30 06:54] VITALS: BP 153/67; PULSE 78
[2019-04-30 07:05] VITALS: O2SAT 91
[2019-04-30 07:09] LABS: ANION GAP 12.8 MEQ/L (5-15); Calcium 8.1 mg/dL (8.4-10.2); Creatinine 1 1.24 mg/dL (0.52-1.04); MAGNESIUM 1.6 mg/dL (1.6-2.3); Potassium 4.8 mmol/L (3.5-5.1)
[2019-04-30] MEDS: Sodium Chloride 0.9% W/ 20 mEq KCl/LITER 1,000 ML IV SCH (07:21)
--- NOTE | 2019-04-30 08:37 | PCM.DS ---
Discharge Summary Date of Admission: 04/28/19 21:59 Admitting Physician: HEMA CEJA Primary Care Provider: HEMA CEJA Allergies Allergies No Known Drug Allergies Allergy (Unverified 04/28/19 19:01) Hospital Summary - Hospital Course Hospital Course: Pt is an 78 yo female pt of Dr. Ceja with HTN who was admitted to [facility] with diarrhea and dehydration. Found to have EPEC diarrhea and acute kidney injury. Her initial eGFR was 36 (in November 2017 her eGFR was 40). She was started on cipro 250mg po BID yesterday and the diarrhea has slowed; now she states she has had some formed stools. Haris po well. Would like to go home. She had some hypokalemia but this morning her potassium is 4.8. She had some fever to 102 when she was admitted; Tmax last night 100.6. Her WBC are 5.5. She had some R knee sprain sx on admission but she states with ice her knee is much better. I advised her any worsening of sx, including but not limited to increased fever or diarrhea, not tolerating po, or just feeling poorly, or syncope - she must return to ER. - Vitals & Intake/Output Vital Signs: Vital Signs Temperature 98.3 F 04/30/19 06:53 Pulse Rate 78 04/30/19 06:53 Respiratory Rate 18 04/30/19 06:53 Blood Pressure 153/67 04/30/19 06:53 O2 Sat by Pulse Oximetry 91 L 04/30/19 07:04 Oxygen-Last Documented O2 Percentage 2 Liters = 28% Intake & Output: Intake & Output 04/27/19 04/28/19 04/29/19 04/30/19 11:59 11:59 11:59 11:59 Intake Total 887 3233 Output Total 200 1400 Balance 687 1833 Weight 79.8 kg 81.7 kg - Lab Result Diagrams: 04/30/19 04:10 04/30/19 04:10 Lab Results-Last 24 Hrs: Lab Results-Last 24 Hours 04/29/19 04/29/19 04/29/19 Range/Units 06:50 07:50 09:27 WBC (4.0-10.5) K/mm3 RBC (4.1-5.4) M/mm3 Hgb (12.0-16.0) gm/dl Hct (35-47) % MCV (78-100) fl MCH (26-32) pg MCHC (32-36) g/dl RDW (11.5-14.0) % Plt Count (150-450) K/mm3 MPV (6-9.5) fl Gran % (36.0-66.0) % Eos # (Auto) (0-0.5) Absolute Lymphs (auto) (1.0-4.6) Absolute Monos (auto) (0.0-1.3) Lymphocytes % (24.0-44.0) % Monocytes % (0.0-12.0) % Eosinophils % (0.00-5.0) % Basophils % (0.0-0.4) % Absolute Granulocytes (1.4-6.9) Basophils # (0-0.4) Sodium (137-145) mmol/L Potassium (3.5-5.1) mmol/L Chloride (98-107) mmol/L Carbon Dioxide (22-30) mmol/L Anion Gap (5-15) MEQ/L BUN (7-17) mg/dL Creatinine (0.52-1.04) mg/dL Estimated GFR ML/MIN Glucose (74-106) mg/dL Calcium (8.4-10.2) mg/dL Magnesium (1.6-2.3) mg/dL Troponin I 0.028 0.024 (0.000-0.034) ng/mL Stl C. cayetanensis PCR NEGATIVE (NEGATIVE) Stl Adenov F 40/41 PCR NEGATIVE (NEGATIVE) Stool Astrovirus (PCR) NEGATIVE (NEGATIVE) Stool Cryptosporidium PCR NEGATIVE (NEGATIVE) Stool EPEC (PCR) POSITIVE A (NEGATIVE) Stool EAEC (PCR) NEGATIVE (NEGATIVE) Stl E. histolytica PCR NEGATIVE (NEGATIVE) Stl P. shigelloides PCR NEGATIVE (NEGATIVE) Stool Sapovirus (PCR) NEGATIVE (NEGATIVE) St Y.enterocolitica PCR NEGATIVE (NEGATIVE) Stool Vibrio (PCR) NEGATIVE (NEGATIVE) Stl Vibrio cholerae PCR NEGATIVE (NEGATIVE) Stl Norovirus GI/GII PCR NEGATIVE (NEGATIVE) Campylobacter (PCR) NEGATIVE (NEGATIVE) C. difficile (PCR) NEGATIVE (NEGATIVE) Enterotoxigenic E. coli NEGATIVE (NEGATIVE) E.coli Shiga Toxins NEGATIVE (NEGATIVE) Giardia lamblia NEGATIVE (NEGATIVE) Rotavirus A (PCR) NEGATIVE (NEGATIVE) Salmonella (PCR) NEGATIVE (NEGATIVE) Shigella (PCR) NEGATIVE (NEGATIVE) 04/30/19 04/30/19 Range/Units 04:10 04:10 WBC 5.5 (4.0-10.5) K/mm3 RBC 3.46 L (4.1-5.4) M/mm3 Hgb 10.2 L (12.0-16.0) gm/dl Hct 32.9 L (35-47) % MCV 95.1 (78-100) fl MCH 29.4 (26-32) pg MCHC 31.0 L (32-36) g/dl RDW 14.3 H (11.5-14.0) % Plt Count 182 (150-450) K/mm3 MPV 11.1 H (6-9.5) fl Gran % 66.7 H (36.0-66.0) % Eos # (Auto) 0.01 (0-0.5) Absolute Lymphs (auto) 1.11 (1.0-4.6) Absolute Monos (auto) 0.68 (0.0-1.3) Lymphocytes % 20.1 L (24.0-44.0) % Monocytes % 12.3 H (0.0-12.0) % Eosinophils % 0.2 (0.00-5.0) % Basophils % 0.7 (0.0-0.4) % Absolute Granulocytes 3.68 (1.4-6.9) Basophils # 0.04 (0-0.4) Sodium 139 (137-145) mmol/L Potassium 4.8 D (3.5-5.1) mmol/L Chloride 109 H (98-107) mmol/L Carbon Dioxide 22 (22-30) mmol/L Anion Gap 12.8 (5-15) MEQ/L BUN 21 H (7-17) mg/dL Creatinine 1.24 H (0.52-1.04) mg/dL Estimated GFR 44.2 ML/MIN Glucose 87 (74-106) mg/dL Calcium 8.1 L (8.4-10.2) mg/dL Magnesium 1.6 (1.6-2.3) mg/dL Troponin I (0.000-0.034) ng/mL Stl C. cayetanensis PCR (NEGATIVE) Stl Adenov F 40/41 PCR (NEGATIVE) Stool Astrovirus (PCR) (NEGATIVE) Stool Cryptosporidium PCR (NEGATIVE) Stool EPEC (PCR) (NEGATIVE) Stool EAEC (PCR) (NEGATIVE) Stl E. histolytica PCR (NEGATIVE) Stl P. shigelloides PCR (NEGATIVE) Stool Sapovirus (PCR) (NEGATIVE) St Y.enterocolitica PCR (NEGATIVE) Stool Vibrio (PCR) (NEGATIVE) Stl Vibrio cholerae PCR (NEGATIVE) Stl Norovirus GI/GII PCR (NEGATIVE) Campylobacter (PCR) (NEGATIVE) C. difficile (PCR) (NEGATIVE) Enterotoxigenic E. coli (NEGATIVE) E.coli Shiga Toxins (NEGATIVE) Giardia lamblia (NEGATIVE) Rotavirus A (PCR) (NEGATIVE) Salmonella (PCR) (NEGATIVE) Shigella (PCR) (NEGATIVE) - Radiology Exams Ordered Rad Exams-Entire Visit: Radiology Procedures Category Date Time Status KNEE (1 OR 2 VIEW) Routine Exams 04/29/19 08:53 Completed - Procedures and Test Procedures and Tests throughout Hospitalization: Therapy Orders & Screens 04/28/19 22:00 EKG REPEAT IN AM Comment: 04/30/19 00:14 Oxygen Nasal Cannula 2 lpm Comment: Diagnosis: Dehydration, diarrhea, hypokalemia, metabolic alkalosis Discharge Exam General Appearance: no apparent distress, alert Neurologic Exam: oriented x 3, cooperative Eye Exam: eyes nml inspection Ears, Nose, Throat Exam: moist mucous membranes Neck Exam: normal inspection, non-tender, No lymphadenopathy Respiratory Exam: normal breath sounds, lungs clear, No crackles/rales, No rhonchi, No wheezing Cardiovascular Exam: regular rate/rhythm, normal heart sounds, No murmur Gastrointestinal/Abdomen Exam: soft, normal bowel sounds, No tenderness, No distention, No mass, No guarding, No rebound Back Exam: normal inspection, No rash Extremity Exam: normal inspection, No pedal edema, No swelling Final Diagnosis/Problem List - Final Discharge Diagnosis/Problem (1) Enteropathogenic Escherichia coli infection Current Visit: Yes Status: Acute Assessment & Plan: It is resolving with supportive tx and cipro 250po BID; will continue x 2 more days (4d total, as the recommended course is 3-5d). Any worsening of sx though in this 78 yo and she would need to return MAXI. Code(s): A04.0 - ENTEROPATHOGENIC ESCHERICHIA COLI INFECTION (2) BRITTANY (acute kidney injury) Current Visit: Yes Status: Resolved Code(s): N17.9 - ACUTE KIDNEY FAILURE, UNSPECIFIED (3) Dehydration Current Visit: Yes Status: Resolved Code(s): E86.0 - DEHYDRATION (4) Hypertension Current Visit: Yes Status: Chronic Assessment & Plan: resume zestoretic at home Code(s): I10 - ESSENTIAL (PRIMARY) HYPERTENSION (5) Hypokalemia Current Visit: Yes Status: Resolved Code(s): E87.6 - HYPOKALEMIA (6) Right knee sprain Current Visit: Yes Status: Acute Assessment & Plan: much improved; continue ice prn Code(s): S83.91XA - SPRAIN OF UNSPECIFIED SITE OF RIGHT KNEE, INITIAL ENCOUNTER - Discharge Disposition: Home, Self-Care Condition: Good Prescriptions: New Ciprofloxacin [Cipro 500 MG] 250 mg PO BID #4 tablet Continue Simvastatin 10 mg PO DAILY Lisinopril/Hydrochlorothiazide [Lisinopril-Hctz 20-12.5 mg Tab] 20 mg PO DAILY Follow up with: HEMA CEJA MD [Primary Care Provider] - 1 Week
[2019-04-30] MEDS: Zocor 10MG PO SCH (09:06)
[2019-04-30] MEDS: Pepcid 20 MG PO SCH (09:06)
[2019-04-30] MEDS: Cipro 500 MG PO SCH (09:06)
== END 2019-04-30 09:35 | disposition home or self-care (01) ==
LOC: ED 18:52 → MED SURG 21:59
PROVIDERS: ADMIT Family Medicine; ATTEND Family Medicine
DX: A04.0 Enteropathogenic Escherichia coli infection (principal); N17.9 Acute kidney failure, unspecified; R19.7 Diarrhea, unspecified; E86.0 Dehydration; E87.3 Alkalosis; R55 Syncope and collapse; I10 Essential (primary) hypertension; S83.91XA Sprain of unspecified site of right knee, initial encounter; Z79.899 Other long term (current) drug therapy
CPT/HCPCS: 36000; 36415; 73560; 80048; 80053; 81001; 82805; 83605; 83735; 84484; 85025; 85610; 85730; 87507; 93005; 93041; 93268; 94760; 96360; 96361; 96374; 99285; G0378; J1650; J2405; A9270-GY